=== PATIENT | male | born 1995 | race African-American/Black ===

== ENCOUNTER 2020-02-16 23:15 | Emergency (ER) | payer SELFPAY ==
[~2020-02-16] VITALS: Ht 177.8 cm; Wt 73.0 kg
[2020-02-16] MEDS ORDERED: DIPHENHYDRAMINE 50MG/ML VIAL IM STA (23:52)
[2020-02-16] MEDS ORDERED: LORAZEPAM 2MG/ML CPJ IM STA (23:52)
[2020-02-17] MEDS ORDERED: HALOPERIDOL LACTATE 5MG/ML VIAL IM ONE
[2020-02-17 01:23] LABS: BASOPHILS % 0.3 % (0.0-2.0); EOSINOPHILS % 0.2 % (0.0-5.0); HEMATOCRIT. 43.1 % (42.0-52.0); HEMOGLOBIN. 14.3 g/dL (14.0-18.0); LYMPHOCYTES % 22.4 % (20.0-50.0); MEAN CORPUSCULAR VOLUME 90.4 fL (80.0-94.0); MONOCYTES % 5.5 % (2.0-8.0); NEUTROPHILS % 71.6 % (40.0-76.0); PLATELET 310 x1000/uL (130-400); RED BLOOD CELL COUNT 4.76 mill/uL (4.7-6.1); RED CELL DISTRIBUTION WIDTH 13.7 % (11.6-14.6)
[2020-02-17 01:39] LABS: CHLORIDE 111 mEq/L (98-107)
[2020-02-17 01:43] LABS: ETHANOL BLOOD 153 mg/dL
[2020-02-17 04:26] VITALS: BP 99/55
== END 2020-02-17 05:07 | disposition home or self-care (01) ==
LOC: ER 23:15
DX: F10.129 Alcohol abuse with intoxication, unspecified (principal); R45.6 Violent behavior; I49.9 Cardiac arrhythmia, unspecified; Y90.6 Blood alcohol level of 120-199 mg/100 ml
CPT/HCPCS: 36415; 80053; 80307; 80320; 80329; 85025; 93005; 96372; 99284; J1200; J1630; J2060; G0480

== ENCOUNTER 2022-06-30 12:30 | Emergency (ER) | payer OTHER ==
[~2022-06-30] VITALS: Ht 167.6 cm; Wt 75.0 kg
[2022-06-30 12:45] VITALS: BP 152/85
[2022-06-30] MEDS ORDERED: IBUPROFEN 600MG TABLET PO ONE (12:45)
[2022-06-30] MEDS ORDERED: TETANUS, DIPHTHERIA, PERTUSSIS VAC/PF 0.5ML (>10YR OLD) IM ONE (12:45)
[2022-06-30] MEDS ORDERED: IBUP-2029 MT (14:10)
== END 2022-06-30 14:25 | disposition home or self-care (01) ==
LOC: ER 12:30
DX: S93.401A Sprain of unspecified ligament of right ankle, initial encounter (principal); W50.2XXA Accidental twist by another person, initial encounter; Y93.89 Activity, other specified; Y92.89 Other specified places as the place of occurrence of the external cause; Y99.8 Other external cause status; F31.9 Bipolar disorder, unspecified
CPT/HCPCS: 73610; 90471; 90715; 99283; Z7610